=== PATIENT | male | born 1965 | race Caucasian/White ===

== ENCOUNTER 2017-10-13 15:42 | Emergency (ER) | payer BC, OTHER ==
[2017-10-13] MEDS ORDERED: Diphtheria,Pertussis(Acell),Tetanus Vaccine 0.5 ML SDV IM ONE (16:14)
[2017-10-13] MEDS ORDERED: Lidocaine 1% 10 ML MDV INJECT ONE (16:24)
--- NOTE | 2017-10-13 16:24 | EDM.PDOC ---
ED HPI GENERAL MEDICAL PROBLEM - General Chief Complaint: Upper Extremity Injury/Pain Stated Complaint: HOOK IN L THUMB Time Seen by Provider: 10/13/17 16:24 Source of Information: Reports: Patient History Limitations: Reports: No Limitations - History of Present Illness INITIAL COMMENTS - FREE TEXT/NARRATIVE: 52-year-old male presents the ED with a fishhook deeply embedded in the palmar aspect of his left thumb. He states this occurred as a accident when they were weighing a [place] Fish. Some how the whole came out of the Fish his mouth and became embedded in the palmar aspect of his left thumb. Tetanus toxoid is not up-to-date. Denies any other injuries. He attempted to remove the hook himself but is unable to get it out. Onset: Today Onset Date: 10/13/17 Onset Time: 14:30 Duration: Hour(s): Location: Reports: Upper Extremity, Left (Left volar distal thumb.) Quality: Reports: Ache Severity: Mild Improves with: Reports: None Worsens with: Reports: Movement Context: Reports: Other (Occurred accidentally while out fishing.). Denies: Activity, Exercise, Lifting, Sick Contact, Trauma Associated Symptoms: Reports: No Other Symptoms Treatments LEG ASSEMBLER: Reports: Other (see below) (None.) Left 1-Thumb Pain Score (Numeric/FACES): 2 - Related Data Allergies Allergy/AdvReac Type Severity Reaction Status Date / Time No Known Allergies Allergy Verified 10/13/17 16:01 Home Meds: Home Meds Doxycycline [Vibramycin] 100 mg PO BID #12 tab 10/13/17 [Rx] Past Medical History - Past Surgical History Musculoskeletal Surgical History: Reports: Other (See Below) Other Musculoskeletal Surgeries/Procedures:: back surgery 15 yrs ago Social & Family History - Tobacco Use Smoking Status *Q: Former Smoker Used Tobacco, but Quit: Yes Month/Year Tobacco Last Used: 4 years ago - Caffeine Use Caffeine Use: Reports: Coffee - Recreational Drug Use Recreational Drug Use: No - Living Situation & Occupation Living situation: Reports: Occupation: Employed Review of Systems - Review of Systems Review Of Systems: See Below Constitutional: Reports: No Symptoms Eyes: Reports: No Symptoms Ears: Reports: No Symptoms Nose: Reports: No Symptoms Mouth/Throat: Reports: No Symptoms Respiratory: Reports: No Symptoms Cardiovascular: Reports: No Symptoms GI/Abdominal: Reports: No Symptoms Genitourinary: Reports: No Symptoms Musculoskeletal: Reports: Back Pain (Occasional positive back pain) Skin: Reports: No Symptoms Neurological: Reports: No Symptoms Psychiatric: Reports: No Symptoms ED EXAM, GENERAL - Physical Exam Exam: See Below Exam Limited By: No Limitations General Appearance: Alert, WD/WN, No Apparent Distress Extremities: Other (Examination was limited to the left thumb. He has a 4 pronged fishhook with one pronged deeply embedded in the distal volar aspect of his left thumb. Sensation to the distal aspect of home is otherwise normal.) Neurological: Alert, Oriented, CN II-XII Intact, Normal Cognition, Normal Gait Course - Vital Signs Last Recorded V/S: Last Vital Signs Temp 37.1 C 10/13/17 15:58 Pulse 87 10/13/17 15:58 Resp 20 10/13/17 15:58 BP 141/87 H 10/13/17 15:58 Pulse Ox 97 10/13/17 15:58 - Orders/Labs/Meds Orders: Active Orders 24 hr Category Date Time Status Vaccines to be Administered [RC] PER UNIT ROUTINE Care 10/13/17 16:14 Active Meds: Medications Discontinued Medications Generic Name Dose Route Start Last Admin Trade Name Freq PRN Reason Stop Dose Admin Diphtheria/Tetanus/Acell Pertussis 0.5 ml 10/13/17 16:14 10/13/17 16:20 Adacel IM 10/13/17 16:15 0.5 ml .ONCE ONE Administration Doxycycline Hyclate 200 mg 10/13/17 17:37 Vibramycin PO 10/13/17 17:38 ONETIME ONE Lidocaine HCl 10 ml 10/13/17 16:24 10/13/17 16:39 Xylocaine 1% INJECT 10/13/17 16:25 10 ml ONETIME ONE Administration - Radiology Interpretation Free Text/Narrative:: 52-year-old male presents the ED with a fishhook deeply embedded in the volar aspect of his distal left thumb. This occurred about 1430 hrs. His attempts to remove it failed due to pain. This occurred accidentally when it came out of a fish his mouth and became embedded in the volar aspect of his left thumb. Tetanus toxoid will be updated.ie TDap. Plan will be then to anesthetize the volar aspect of his thumb with 1% lidocaine and cut the fissure cough and then remove the ijeoma. - Re-Assessments/Exams Free Text/Narrative Re-Assessment/Exam: 10/13/17 17:30: I was able to anesthetize his thumb and as above cut the fishhook away and then pushed the barbed through the anesthetized skin and remove the pronged of the fishhook. Bleeding was minimal. Topical antibiotic application and bandage. He'll be placed on doxycycline 200 mg initially then 1 tablet twice a day for the 6 days to prevent secondary wound infection. Motrin 600 mg every 6 hours needed for pain relief. Follow up if any problems occur. Departure - Departure Time of Disposition: 17:38 Disposition: Home, Self-Care 01 Condition: Fair Clinical Impression: [place] injury to finger Qualifiers: Encounter type: initial encounter Laterality: left Qualified Code(s): S69.92XA - Unspecified injury of left wrist, hand and finger(s), initial encounter - Discharge Information Prescriptions: Doxycycline [Vibramycin] 100 mg PO BID #12 tab Referrals: Tye Fisher MD [Primary Care Provider] - Forms: ED Department Discharge Additional Instructions: Evaluation the emergent today in regards to a fishhook that became deeply embedded in the palmar aspect of your left thumb. This occurred while fishing. The area was anesthetized with 1% lidocaine after being aroused in Betadine solution. I was unable to push the ijeoma of the heart through another portion of your skin and remove the ijeoma. Treatment is Motrin 600 mg every 6 hours needed for pain relief. Antibiotic is to be doxycycline 100 mg twice daily for the next 6 days to prevent secondary wound infection. This medication is to be started tomorrow morning. You were given an antibiotic in the ED today therefore he will not need any further antibiotic's today. SPECT the thumb to be sore for the next for 5 days and then heal up without a problem. Daily cleanse the area was soap and water and apply topical antibiotic such as bacitracin or Polysporin and a bandage to keep clean. - My Orders Last 24 Hours: My Active Orders 10/13/17 16:14 Vaccines to be Administered [RC] PER UNIT ROUTINE - Assessment/Plan Last 24 Hours: My Active Orders 10/13/17 16:14 Vaccines to be Administered [RC] PER UNIT ROUTINE
[2017-10-13] MEDS ORDERED: Doxycycline 100 MG Cap PO ONE (17:37)
== END 2017-10-13 17:47 | disposition home or self-care (01) ==
LOC: JD.ED 15:42
DX: S60.352A Superficial foreign body of left thumb, initial encounter (principal); Z87.891 Personal history of nicotine dependence; W45.8XXA Other foreign body or object entering through skin, initial encounter
CPT/HCPCS: 90471; 90715; 99283; A9270; 10120

== ENCOUNTER 2020-12-26 08:22 | Day surgery (SDC) | payer OTHER ==
[~2020-12-26 08:22] MED LIST: Lactated Ringers 1,000 ML IV SCH; Lidocaine 1%/Sod Bicarbonate in NS 8.4% 1 ML Syringe IDERM PRN; Sodium Chloride 0.9% 10 ML Syringe FLUSH PRN
[2020-12-26] MEDS ORDERED: Bupivacaine 0.5%/EPINEPHrine 1:200,000 50 ML MDV ONE (08:41)
--- NOTE | 2020-12-26 08:51 | PCM.PREANE ---
Preanesthetic Assessment - Procedure Proposed Procedure: lap right inguinal hernia repair with mesh - Anesthesia/Transfusion/Family Hx Anesthesia History: Prior Anesthesia Without Reaction Family History of Anesthesia Reaction: No Transfusion History: No Prior Transfusion(s) - Review of Systems General: No Symptoms Pulmonary: No Symptoms Cardiovascular: No Symptoms Gastrointestinal: No Symptoms Neurological: No Symptoms Other: Reports: Neck Pain (normal aches and pains), Anxiety - Physical Assessment NPO Status Date: 12/25/20 NPO Status Time: 18:00 Vital Signs: 153/83 74 99% 98.2 16 Height: 6 ft 1 in Weight: 123 kg ASA Class: 3 Mental Status: Alert & Oriented x3 Airway Class: Mallampati = 3 Dentition: Reports: Normal Dentition Thyro-Mental Finger Breadths: 3 Mouth Opening Finger Breadths: 3 ROM/Head Extension: Full Lungs: Clear to Auscultation, Normal Respiratory Effort Cardiovascular: Regular Rate, Regular Rhythm, Murmurs - Allergies Allergies/Adverse Reactions: Allergies Allergy/AdvReac Type Severity Reaction Status Date / Time No Known Allergies Allergy Verified 12/23/20 12:43 - Blood Blood Available: No - Acknowledgements Anesthesia Type Planned: General Anesthesia Pt an Appropriate Candidate for the Planned Anesthesia: Yes Alternatives and Risks of Anesthesia Discussed w Pt/Guardian: Yes Pt/Guardian Understands and Agrees with Anesthesia Plan: Yes PreAnesthesia Questionnaire HEENT History: Reports: Impaired Vision, Other (See Below) Other HEENT History: WEARS GLASSES Cardiovascular History: Reports: Other (See Below) Other Cardiovascular History: HEART CATH, MITRAL VALVE PROLAPSE Respiratory History: Reports: Sleep Apnea (cpap) Gastrointestinal History: Reports: GERD Genitourinary History: Reports: None LANGUAGE TEACHER History: Reports: None Musculoskeletal History: Reports: Back Pain, Chronic (low back) Neurological History: Reports: None Psychiatric History: Reports: None Endocrine/Metabolic History: Reports: Obesity/BMI 30+ Hematologic History: Reports: None Immunologic History: Reports: None Oncologic (Cancer) History: Reports: None Dermatologic History: Reports: None - Past Surgical History Head Surgeries/Procedures: Reports: None Respiratory Surgical History: Reports: None GI Surgical History: Reports: Colonoscopy, EGD, Other (See Below) (ciro) Female Surgical History: Reports: None Male Surgical History: Reports: None Endocrine Surgical History: Reports: None Neurological Surgical History: Reports: None Musculoskeletal Surgical History: Reports: Other (See Below) Other Musculoskeletal Surgeries/Procedures:: back surgery 18 yrs ago Oncologic Surgical History: Reports: None Dermatological Surgical History: Reports: None - History Comment History Comment: omeprazole - SUBSTANCE USE Tobacco Use Status *Q: Former Tobacco User Tobacco Use Within Last Twelve Months: No Second Hand Smoke Exposure: Yes Days Per Week of Alcohol Use: 7 Number of Drinks Per Day: 2 Total Drinks Per Week: 14 Recreational Drug Use History: No - HOME MEDS Home Medications: Home Meds Aspirin 81 mg PO DAILY 12/23/20 [History] Focus Factor 2 cap PO DAILY 12/23/20 [History] Multivitamin [Daily Brea] 1 tab PO DAILY 12/23/20 [History] atorvaSTATin [Lipitor] 20 mg PO BEDTIME 12/23/20 [History] - CURRENT (IN HOUSE) MEDS Current Meds: Current Medications Lactated Ringer's (Ringers, Lactated) 1,000 mls @ 125 mls/hr IV ASDIRECTED LINDA Stop: 12/26/20 23:00 Lidocaine/Sodium Bicarbonate (Lidocaine 1%/Sod Bicarbonate In Ns 8.4% 1 Ml Syringe) 0.25 ml IDERM ONETIME PRN PRN Reason: Prior to IV Start Stop: 12/26/20 18:00 Sodium Chloride (Sodium Chloride 0.9% 10 Ml Syringe) 10 ml FLUSH ASDIRECTED PRN PRN Reason: Keep Vein Open Stop: 12/26/20 18:00 Discontinued Medications Bupivacaine HCl/Epinephrine Bitart (Bupivacaine 0.5%/Epinephrine 1:200,000 50 Ml Mdv) Confirm Administered Dose 50 ml .ROUTE .STK-MED ONE Stop: 12/26/20 08:42 Lactated Ringer's (Ringers, Lactated) 1,000 mls @ 125 mls/hr IV ASDIRECTED LINDA Stop: 07/11/20 00:02 Lactated Ringer's (Ringers, Lactated) 1,000 mls @ 125 mls/hr IV ASDIRECTED LINDA Stop: 10/03/20 23:00 Lidocaine/Sodium Bicarbonate (Lidocaine 1%/Sod Bicarbonate In Ns 8.4% 1 Ml Syringe) 0.25 ml IDERM ONETIME PRN PRN Reason: Prior to IV Start Stop: 07/11/20 18:00 Lidocaine/Sodium Bicarbonate (Lidocaine 1%/Sod Bicarbonate In Ns 8.4% 1 Ml Syringe) 0.25 ml IDERM ONETIME PRN PRN Reason: Prior to IV Start Stop: 10/03/20 18:00 Sodium Chloride (Sodium Chloride 0.9% 10 Ml Syringe) 10 ml FLUSH ASDIRECTED PRN PRN Reason: Keep Vein Open Stop: 07/11/20 18:00 Sodium Chloride (Sodium Chloride 0.9% 10 Ml Syringe) 10 ml FLUSH ASDIRECTED PRN PRN Reason: Keep Vein Open Stop: 10/03/20 18:00
[2020-12-26] MEDS ORDERED: Rocuronium 50 MG/5 ML Vial ONE ×6 (09:03→16:26)
[2020-12-26] MEDS ORDERED: Propofol 200 MG/20 ML SDV ONE (09:03)
[2020-12-26] MEDS ORDERED: Lidocaine 1% 4 ML ONE (09:03)
[2020-12-26] MEDS ORDERED: Ondansetron 4 MG/2 ML SDV ONE (09:03)
[2020-12-26] MEDS ORDERED: Midazolam 1 MG/ML 2 ML SDV ONE (09:03)
[2020-12-26] MEDS ORDERED: fentaNYL 250 MCG/5 ML SDV ONE (09:04)
[2020-12-26] MEDS ORDERED: ceFAZolin 1 GM Vial ONE ×2 (09:04→16:53)
[2020-12-26] MEDS ORDERED: Dexamethasone 4 MG/ML 5 ML MDV ONE (11:30)
[2020-12-26] MEDS ORDERED: Lactated Ringers 1,000 ML ONE ×2 (12:11→12:53)
[2020-12-26] MEDS ORDERED: fentaNYL 100 MCG/2 ML SDV IVPUSH PRN (12:29)
[2020-12-26] MEDS ORDERED: Ondansetron 4 MG/2 ML SDV IVPUSH PRN (12:29)
[2020-12-26] MEDS ORDERED: HYDROmorphone 0.5 MG/0.5 ML Syringe IVPUSH PRN (12:29)
[2020-12-26] MEDS ORDERED: HYDROmorphone 0.5 MG/0.5 ML Syringe ONE ×2 (12:54→15:04)
[2020-12-26] MEDS ORDERED: fentaNYL 100 MCG/2 ML SDV ONE ×2 (13:41→15:37)
[2020-12-26] MEDS ORDERED: Ketamine 500 mg/10 ML MDV ONE (15:52)
--- NOTE | 2020-12-26 17:43 | PCM.POSTAN ---
POST ANESTHESIA ASSESSMENT - MENTAL STATUS Mental Status: Somnolent - VITAL SIGNS Vital Signs: Last Vital Signs Temp 98.2 F 12/26/20 08:50 Pulse 74 12/26/20 08:50 Resp 16 12/26/20 08:50 BP 153/83 H 12/26/20 08:50 Pulse Ox 99 12/26/20 08:50 1732 159/88 93% 85 16 98.3 - RESPIRATORY Respiratory Status: Respiratory Rate WNL, Airway Patent, O2 Saturation Stable, Supplemental Oxygen - CARDIOVASCULAR CV Status: Pulse Rate WNL, Blood Pressure Stable - GASTROINTESTINAL GI Status: No Symptoms - PAIN Pain Score: 0 (rests) - POST OP HYDRATION Hydration Status: Adequate & Stable
--- NOTE | 2020-12-26 19:09 | OR ---
DATE OF OPERATION: 12/26/2020 SURGEON: Paris Braxton MD PREOPERATIVE DIAGNOSIS: Right inguinal hernia, symptomatic. POSTOPERATIVE DIAGNOSIS: Bilateral indirect inguinal hernia, right larger than the left. OPERATION PERFORMED: Laparoscopic bilateral inguinal hernia repairs with mesh. ANESTHESIA: General endotracheal with local anesthetic consisting of 28 mL of 0.4% Marcaine with epinephrine. ESTIMATED BLOOD LOSS: 50 mL. INDICATION AND CONSENT: Mr. Dukes is a 55-year-old male who has a longstanding right inguinal hernia that has been enlarging. The patient was scheduled to undergo repair back in June; however, due to required workup and COVID-19 pandemic, which the patient was at some point positive, we could do the procedure until now. Today, the patient presented to the preprocedure area, so the patient discussed again about the surgery. In the office, we discussed in detail the risks, benefits, and alternatives. The patient agreed to proceed with the procedure, and the procedure planned was laparoscopic right inguinal hernia repair, possible bilateral with mesh, and all questions were answered, informed consent was obtained. DESCRIPTION OF PROCEDURE: The patient was taken to the operating room, placed in supine position. General endotracheal anesthesia was induced. Ancef was given as a preop antibiotic. Then, the abdomen was clipped off hair, prepped and draped in the usual sterile fashion. Formal time-out was performed prior to start of procedure. We began the procedure by injecting local anesthetic into left upper quadrant. A small incision was made. Veress needle was introduced. The abdomen was insufflated to 15 mmHg, and then a 5 mm trocar was placed under direct visualization of a 5-30 scope. The patient was placed in the Trendelenburg position slightly and then we examined both inguinal areas. The right one had obvious large indirect inguinal hernia containing bowels and omentum. The left had a small indirect inguinal hernia as well. Therefore, decision was made to proceed with bilateral inguinal hernia repairs. At this point, the abdomen was desufflated. The right infraumbilical site was anesthetized with local anesthetic. Incision was made and dissection was carried down to the anterior sheath. This was exposed, incised, and then the rectus muscle was swept laterally exposing the posterior fascia. Then, an S retractor was placed in this area and then a balloon dissector was placed and insufflated. Once the balloon dissector was done, it was removed. A 10 laparoscope was placed. There was some oozing in the dissection area, but this was not overwhelming. Then, we began dissection by placing two 5 mm trocars, 1 in the suprapubic and another one between the camera port and the 5 mm suprapubic trocar. We paid our attention to the right side first. The pubic bone and Amrit's ligament were exposed in that midline and then the lateral space on the right side was created bluntly. I then reduced 1 hernia on the right side and then there was another larger hernia sac also on the right side. This was anatomically aberrant as it was oriented from medial to lateral towards the indirect space. At this point we turned to the left side. Similarly, the left side lateral space was dissected. The hernia was reduced and the parietal peritoneum was reduced about 6 cm from the hernia site to create a good adequate room for the mesh. Large lipoma of the cord was also reduced. We went ahead and placed a mesh on the left side and this was a preformed large Bard 3D Max polypropylene mesh with a dimension of 10.8 cm x 16 cm. This was placed on the left side and so it was oriented appropriately and it was secured in place with SorbaFix, 1 tack at the Amrit's ligament, another one laterally. Once this was done, then we returned back to the right side and began reducing the large hernia. We began by slowly taking down adhesions for this hernia. This hernia was large and extensive. There was quite a bit of oozing here during this dissection. We kept doing this, but due to attenuation of the hernia sac, it kept tearing causing abdominal insufflation reducing our working space. We persisted trying to reduce the hernia sac, but due to continued oozing and difficulty with visualization, a decision was made to convert this procedure to transabdominal laparoscopic hernia repair, KATHRYN. Therefore, the infraumbilical balloon trocar was exchanged for a 12 mm trocar and placed intra-abdominally. Another 5 trocar was placed in the right lateral abdomen in the midclavicular line at the level of the umbilicus. Another one was placed in the mirror image on the left side. Then, the abdomen was insufflated to 15 mmHg. The patient was tilted into Trendelenburg position and then a parietoperitoneal incision was made and this coincided with incision already done with balloon dissection, and our prior dissection, and we were able to focus on the hernia reduction. At this point, then we continued to reduce the hernia until the entire hernia was out of the hernia sac and all the fatty tissue was also out of the hernia sac and peritoneum was well below and away from the hernia defect. Oozing was minor and there was no pulsatile bleeding. Once this was done, we were using Ray-Jocelyn to dab any blood in the dissection field and then because of the numerous holes, large hole in the hernia sac, we elected to place a dual- coated mesh. Therefore, a 10.2 x 15[address] mesh was brought into the field. This is a dual-coated polypropylene mesh, which was placed at the hernia defect covering the entirety of the hernia defect and there was about 1-2 cm overlap at midline between the meshes. The mesh was secured with 2 tacks at the midline, 2 tacks laterally and 1 tack superiorly at the rectus muscle. It was placed such that it was lying flat, avoiding any kinking or folding. Once this was done, we inspected the area that appeared to be well. Then, the abdomen was desufflated. The infraumbilical site was closed at the fascial level with 0 Vicryl stitch and the rest of the 5 mm sites were closed with 4-0 Monocryl skin level and the infraumbilical site was also closed with 4-0 Monocryl skin level. This marked the end of the procedure. The patient was awoken and extubated and taken to the PACU. The patient to be observed overnight and discharged tomorrow if doing well. CAROL /[id number] SANDRA
[2020-12-27] MEDS: oxyCODONE 5 MG Tab PO PRN ×2 (00:22→08:04)
--- NOTE | 2020-12-27 08:44 | PCM48HPAN ---
Post Anesthesia Note - EVALUATION WITHIN 48HRS OF ANESTHETIC Vital Signs in Normal Range: Yes Patient Participated in Evaluation: Yes Respiratory Function Stable: Yes Airway Patent: Yes Cardiovascular Function Stable: Yes Hydration Status Stable: Yes Pain Control Satisfactory: Yes Nausea and Vomiting Control Satisfactory: Yes Mental Status Recovered: Yes Vital Signs: Last Vital Signs Temp 36.5 C 12/27/20 07:56 Pulse 71 12/27/20 07:56 Resp 16 12/27/20 07:48 BP 116/73 12/27/20 07:56 Pulse Ox 97 12/27/20 07:56
[2020-12-27] MEDS ORDERED: Ondansetron 4 MG Tab.DIS PO ONE (09:30)
[2020-12-27] MEDS ORDERED: oxyCODONE 5 MG Tab PO ONE (09:30)
== END 2020-12-27 10:03 | disposition home or self-care (01) ==
LOC: JD.SDS 08:22 → JD.MS 18:46 → JD.SDS 12-27 10:03
PROVIDERS: ATTEND Surgery
DX: K40.20 Bilateral inguinal hernia, without obstruction or gangrene, not specified as recurrent (principal); E78.2 Mixed hyperlipidemia; E66.9 Obesity, unspecified; G47.33 Obstructive sleep apnea (adult) (pediatric); Z98.890 Other specified postprocedural states; Z79.899 Other long term (current) drug therapy; Z68.35 Body mass index [BMI] 35.0-35.9, adult; Z87.891 Personal history of nicotine dependence
CPT/HCPCS: 49650; 51798; A9270; J0690; J1100; J1170; J2250; J2405; J2704; J2710; J3010; J3490; J7120; 00840; C1781